=== PATIENT | male | born 1995 | race Caucasian/White ===

== ENCOUNTER 2020-02-25 16:10 | Emergency (ER) | payer OTHER, SELFPAY ==
[2020-02-25 16:19] VITALS: BP 108/68; PULSE 69; O2SAT 97
[2020-02-25 16:24] VITALS: BP 108/68; PULSE 69; RESP 18; TEMP 37.1; O2SAT 97; BMI 25.1
[2020-02-25 16:58] LABS: Add Manual Diff / Slide Review NO; Basophils Absolute Auto 0 /uL (0-100); Basophils Percent Auto 0.6 % (0-2); Eosinophils Absolute Auto 100 /uL (0-450); Hematocrit 43.8 % (41-53); Hemoglobin 14.8 g/dL (13.5-17.5); Lymphocytes Absolute Auto 1600 /uL (1100-4500); Lymphocytes Percent Auto 27.2 % (25-40); Mean Corpuscular HGB Conc 33.8 % (30-36); Mean Corpuscular Hemoglobin 30.5 PG (26-34); Monocytes Absolute Auto 400 /uL (0-900); Monocytes Percent Auto 7.6 % (3-14); Neutrophils Absolute Auto 3700 /uL (1500-7000); Neutrophils Percent Auto 62.6 % (50-75); Platelet Count 209 X10^3/uL (150-400); Red Blood Cell Count 4.87 X10^6/uL (4.5-5.9); Red Cell Distribution Width 12.6 % (11.6-14.8); White Blood Cell Count 5.9 X10^3/uL (4.5-11.0)
--- NOTE | 2020-02-25 17:04 | ED.PSYCH ---
HPI - Psych <ALDA Cui-BC - Last Filed: 02/25/20 20:12> General Chief Complaint: Psychiatric Symptoms Stated Complaint: severe depression Time Seen by Provider: 02/25/20 16:15 Source: patient and other Mode of arrival: Ambulatory Limitations: no limitations History of Present Illness HPI Narrative: The patient is a 24-year-old male current smoker with history of depression who presents with a chief complaint of severe depression. He is in the , and was recently discharged from a psychiatric stay at [facility] over the summer. He endorses hopelessness states he is not eating or drinking well. States he is not sleeping well. States that he has not had anything to eat or drink yet today. He endorses hopelessness, states that he feels as though nobody ?really knows him.He states he wakes up every morning wondering why he is alive. He does have suicidal ideations, and endorses a plan of hanging. He states that he lost his mother, recently lost his step grandfather who helped raise him. He states that so he is not in much contact with his family and that they do not care about him at this point time. He states he thinks he needs inpatient hospitalization. He states he is able to be safe during his emergency department stay. 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 He denies any drug use, states that he drinks a few times a week, but nothing to excess. He has not had a drink in several days. He states he is supposed to take medication for depression and sleep, but does not take it all the time. Related Data Allergies Allergy/AdvReac Type Severity Reaction Status Date / Time No Known Drug Allergies Allergy Verified 02/25/20 16:24 Review of Systems <ALDA Cui-BC - Last Filed: 02/25/20 20:12> Review of Systems Narrative: GENERAL: Denies chills, fatigue, malaise, fever, sweats. HEENT: Denies sinus pain, ear pain, sore throat, difficulty swallowing, dizziness. RESPIRATORY: Denies dyspnea, cough, wheezing, hemoptysis, sputum. CARDIOVASCULAR: Denies chest pain, palpitations, orthopnea, edema, GASTROINTESTINAL: Denies nausea, vomiting, abdominal pain, diarrhea, constipation, melena. : Denies dysuria, frequency, incontinence, hematuria, urinary retention. MUSCULOSKELETAL: denies weakness, joint pain, or bony pain SKIN: Denies rash, skin lesions, or other NEUROLOGIC: Denies weakness, headache, numbness, change in speech, confusion, seizures, incoordination. PSYCHIATRIC: See HPI 12 point review of systems is negative except for those stated above Patient History <SMOOTH Cui - Last Filed: 02/25/20 20:12> Social History Smoking Status: Current every day smoker Smoking Status: Current every day smoker alcohol intake frequency: a few times a week Substance Use Type: does not use Exam <SMOOTH Cui - Last Filed: 02/25/20 20:12> Narrative Exam Narrative: GENERAL: This is a well-nourished, well-developed patient, in appears anxious HEAD: Atraumatic. Normocephalic. No temporal or scalp tenderness. EYES: Pupils equal round and reactive. Extraocular motions intact. No scleral icterus. No injection or drainage. ENT: Nose without bleeding, purulent drainage or septal hematoma. Wearing a mask Airway patent. NECK: Trachea midline. No JVD or lymphadenopathy. Supple, nontender, no meningeal signs. CARDIOVASCULAR: Regular rate and rhythm without murmurs, gallops, or rubs. RESPIRATORY: Speaking full sentences. No cough. No increased respiratory effort. No accessory muscle use. EXTREMITIES: No clubbing, cyanosis, or edema. No joint tenderness, effusion, or edema noted. Using all extremities equally. BACK: Nontender without deformity or crepitance. No flank tenderness. NEURO: AOx3. Tangential at times. Flat affect. Staring at the floor during interview. SKIN: No rash or erythema on visible skin Initial Vital Signs Initial Vital Signs: Vital Signs Pulse Rate 69 02/25/20 16:19 Blood Pressure 108/68 02/25/20 16:19 Pulse Oximetry 97 02/25/20 16:19 <Maxwell Hilton DO - Last Filed: 02/25/20 22:01> Initial Vital Signs Initial Vital Signs: Vital Signs Pulse Rate 69 02/25/20 16:19 Blood Pressure 108/68 02/25/20 16:19 Pulse Oximetry 97 02/25/20 16:19 Scores <SMOOTH Cui - Last Filed: 02/25/20 20:12> GCS [place] coma scale eye opening: Spontaneous [place] coma scale verbal response: Orientated Lazaro coma scale motor response: Obey commands Lazaro coma scale total score: 15 Course <SMOOTH Cui - Last Filed: 02/25/20 20:12> Orders Ordered: ED Orders 02/25/20 16:36 Consult to [facility] Deliver Driver Urgent 02/25/20 16:50 Acetaminophen Stat Complete Blood Count AUTO DIFF Stat Comprehensive Metabolic Panel Stat Ethanol (ETOH) Stat Salicylate Stat Thyroid Stimulating Hormone Stat 02/25/20 18:25 Urine Drug Screen, Rapid Stat 02/25/20 18:40 COVID19 Stat Vital Signs Vital signs: Vital Signs - 8 hr 02/25/20 16:19 02/25/20 16:24 02/25/20 19:32 Temperature 98.8 F Pulse Rate 69 69 76 Respiratory Rate 18 18 Blood Pressure 108/68 108/68 117/61 Pulse Oximetry 97 97 97 <Maxwell Hilton DO - Last Filed: 02/25/20 22:01> Orders Ordered: ED Orders 02/25/20 16:36 Consult to [facility] Deliver Driver Urgent 02/25/20 16:50 Acetaminophen Stat Complete Blood Count AUTO DIFF Stat Comprehensive Metabolic Panel Stat Ethanol (ETOH) Stat Salicylate Stat Thyroid Stimulating Hormone Stat 02/25/20 18:25 Urine Drug Screen, Rapid Stat 02/25/20 18:40 COVID19 Stat Vital Signs Vital signs: Vital Signs - 8 hr 02/25/20 16:19 02/25/20 16:24 02/25/20 19:32 Temperature 98.8 F Pulse Rate 69 69 76 Respiratory Rate 18 18 Blood Pressure 108/68 108/68 117/61 Pulse Oximetry 97 97 97 MDM - Psych <SMOOTH Cui - Last Filed: 02/25/20 20:12> Lab Data Result diagrams: 02/25/20 16:50 02/25/20 16:50 Labs: Lab Results 02/25/20 02/25/20 02/25/20 Range/Units 16:50 16:50 16:50 WBC 5.9 (4.5-11.0) X10^3/uL RBC 4.87 (4.5-5.9) X10^6/uL Hgb 14.8 (13.5-17.5) g/dL Hct 43.8 (41-53) % MCV 90.0 (80-100) fL MCH 30.5 (26-34) PG MCHC 33.8 (30-36) % RDW 12.6 (11.6-14.8) % Plt Count 209 (150-400) X10^3/uL Neut % (Auto) 62.6 (50-75) % Lymph % (Auto) 27.2 (25-40) % [place] % (Auto) 7.6 (3-14) % Eos % (Auto) 2.0 (2-4) % Baso % (Auto) 0.6 (0-2) % Neut # (Auto) 3700 (9714-5149) /uL Lymph # (Auto) 1600 (5860-2017) /uL [place] # (Auto) 400 (0-900) /uL Eos # (Auto) 100 (0-450) /uL Baso # (Auto) 0 (0-100) /uL Sodium 142 (137-145) mmol/L Potassium 4.4 (3.4-5.1) mmol/L Chloride 103 (98-107) mmol/L Carbon Dioxide 32 (22-32) mmol/L BUN 13 (9-20) mg/dL Creatinine 0.91 (0.66-1.25) mg/dL Estimated GFR > 60.0 (>60) mL/min BUN/Creatinine Ratio 14.3 (6-22) Glucose 102 H (70-100) mg/dL Calcium 9.8 (8.4-10.2) mg/dL Total Bilirubin 0.9 (0.2-1.3) mg/dL AST 26 (17-59) IU/L ALT 22 (<50) IU/L Alkaline Phosphatase 59 (38-126) U/L Total Protein 8.2 (6.3-8.2) g/dL Albumin 5.0 (3.5-5.0) g/dL Globulin 3.2 (1.7-4.1) g/dL Albumin/Globulin Ratio 1.6 (1.0-2.8) TSH 1.38 (0.47-4.68) uIU/mL Salicylates < 1.0 (<20) mg/dL U Opiates 300ng/mL cut (Negative) Ur Oxycodone Screen (Negative) Urine Methadone Screen (Negative) Acetaminophen < 10 L (10-30) ug/mL Ur Barbiturates Screen (Negative) U Tricyclic Antidepress (Negative) Ur Phencyclidine Scrn (Negative) Ur Amphetamines Screen (Negative) U Methamphetamines Scrn (Negative) Ur MDMA Scrn (Ecstasy) (Negative) U Benzodiazepines Scrn (Negative) Urine Cocaine Screen (Negative) U Marijuana (THC) Screen (Negative) Ethyl Alcohol < 10 ( - 10) mg/dL COVID-19 PCR (Negative) 02/25/20 02/25/20 Range/Units 18:25 18:40 WBC (4.5-11.0) X10^3/uL RBC (4.5-5.9) X10^6/uL Hgb (13.5-17.5) g/dL Hct (41-53) % MCV (80-100) fL MCH (26-34) PG MCHC (30-36) % RDW (11.6-14.8) % Plt Count (150-400) X10^3/uL Neut % (Auto) (50-75) % Lymph % (Auto) (25-40) % [place] % (Auto) (3-14) % Eos % (Auto) (2-4) % Baso % (Auto) (0-2) % Neut # (Auto) (8980-8236) /uL Lymph # (Auto) (7996-9693) /uL [place] # (Auto) (0-900) /uL Eos # (Auto) (0-450) /uL Baso # (Auto) (0-100) /uL Sodium (137-145) mmol/L Potassium (3.4-5.1) mmol/L Chloride (98-107) mmol/L Carbon Dioxide (22-32) mmol/L BUN (9-20) mg/dL Creatinine (0.66-1.25) mg/dL Estimated GFR (>60) mL/min BUN/Creatinine Ratio (6-22) Glucose (70-100) mg/dL Calcium (8.4-10.2) mg/dL Total Bilirubin (0.2-1.3) mg/dL AST (17-59) IU/L ALT (<50) IU/L Alkaline Phosphatase (38-126) U/L Total Protein (6.3-8.2) g/dL Albumin (3.5-5.0) g/dL Globulin (1.7-4.1) g/dL Albumin/Globulin Ratio (1.0-2.8) TSH (0.47-4.68) uIU/mL Salicylates (<20) mg/dL U Opiates 300ng/mL cut Negative (Negative) Ur Oxycodone Screen Negative (Negative) Urine Methadone Screen Negative (Negative) Acetaminophen (10-30) ug/mL Ur Barbiturates Screen Negative (Negative) U Tricyclic Antidepress Negative (Negative) Ur Phencyclidine Scrn Negative (Negative) Ur Amphetamines Screen Negative (Negative) U Methamphetamines Scrn Negative (Negative) Ur MDMA Scrn (Ecstasy) Negative (Negative) U Benzodiazepines Scrn Negative (Negative) Urine Cocaine Screen Negative (Negative) U Marijuana (THC) Screen Negative (Negative) Ethyl Alcohol ( - 10) mg/dL COVID-19 PCR Negative (Negative) Urine Dip Bedside Urine Glucose Negative Bedside Urine Bilirubin - Negative Bedside Urine Ketone - Negative Urine Specific [place] 1.015 Bedside Urine Occult Blood - Negative Bedside Urine pH 7.0 Bedside Urine Protein - Negative Bedside Urine Urobilinogen - Negative Bedside Urine Nitrite - Negative Bedside Urine Leukocytes - Negative Esterase MDM Narrative Medical decision making narrative: The patient is a 24-year-old male who presents with a chief complaint of severe depression. Given his history, presentation and plan to suicide by hanging, I am concerned about him and believe he needs inpatient admission. At this point the patient is willing to seek care and is voluntary at this moment in time. Thus basic psychiatric admission labs were obtained. Coronavirus test is negative. Urine tox screen is negative. Patient was accepted at [facility]. Has been cooperative throughout his emergency department stay. Patient and superior from elect to have patient transported by BLS rather than to superiors. S transportation arranged. <Maxwell Hilton, DO - Last Filed: 02/25/20 22:01> Lab Data Labs: Lab Results 02/25/20 02/25/20 02/25/20 Range/Units 16:50 16:50 16:50 WBC 5.9 (4.5-11.0) X10^3/uL RBC 4.87 (4.5-5.9) X10^6/uL Hgb 14.8 (13.5-17.5) g/dL Hct 43.8 (41-53) % MCV 90.0 (80-100) fL MCH 30.5 (26-34) PG MCHC 33.8 (30-36) % RDW 12.6 (11.6-14.8) % Plt Count 209 (150-400) X10^3/uL Neut % (Auto) 62.6 (50-75) % Lymph % (Auto) 27.2 (25-40) % [place] % (Auto) 7.6 (3-14) % Eos % (Auto) 2.0 (2-4) % Baso % (Auto) 0.6 (0-2) % Neut # (Auto) 3700 (7892-0157) /uL Lymph # (Auto) 1600 (4441-3921) /uL [place] # (Auto) 400 (0-900) /uL Eos # (Auto) 100 (0-450) /uL Baso # (Auto) 0 (0-100) /uL Sodium 142 (137-145) mmol/L Potassium 4.4 (3.4-5.1) mmol/L Chloride 103 (98-107) mmol/L Carbon Dioxide 32 (22-32) mmol/L BUN 13 (9-20) mg/dL Creatinine 0.91 (0.66-1.25) mg/dL Estimated GFR > 60.0 (>60) mL/min BUN/Creatinine Ratio 14.3 (6-22) Glucose 102 H (70-100) mg/dL Calcium 9.8 (8.4-10.2) mg/dL Total Bilirubin 0.9 (0.2-1.3) mg/dL AST 26 (17-59) IU/L ALT 22 (<50) IU/L Alkaline Phosphatase 59 (38-126) U/L Total Protein 8.2 (6.3-8.2) g/dL Albumin 5.0 (3.5-5.0) g/dL Globulin 3.2 (1.7-4.1) g/dL Albumin/Globulin Ratio 1.6 (1.0-2.8) TSH 1.38 (0.47-4.68) uIU/mL Salicylates < 1.0 (<20) mg/dL U Opiates 300ng/mL cut (Negative) Ur Oxycodone Screen (Negative) Urine Methadone Screen (Negative) Acetaminophen < 10 L (10-30) ug/mL Ur Barbiturates Screen (Negative) U Tricyclic Antidepress (Negative) Ur Phencyclidine Scrn (Negative) Ur Amphetamines Screen (Negative) U Methamphetamines Scrn (Negative) Ur MDMA Scrn (Ecstasy) (Negative) U Benzodiazepines Scrn (Negative) Urine Cocaine Screen (Negative) U Marijuana (THC) Screen (Negative) Ethyl Alcohol < 10 ( - 10) mg/dL COVID-19 PCR (Negative) 02/25/20 02/25/20 Range/Units 18:25 18:40 WBC (4.5-11.0) X10^3/uL RBC (4.5-5.9) X10^6/uL Hgb (13.5-17.5) g/dL Hct (41-53) % MCV (80-100) fL MCH (26-34) PG MCHC (30-36) % RDW (11.6-14.8) % Plt Count (150-400) X10^3/uL Neut % (Auto) (50-75) % Lymph % (Auto) (25-40) % [place] % (Auto) (3-14) % Eos % (Auto) (2-4) % Baso % (Auto) (0-2) % Neut # (Auto) (2492-2750) /uL Lymph # (Auto) (3712-5754) /uL [place] # (Auto) (0-900) /uL Eos # (Auto) (0-450) /uL Baso # (Auto) (0-100) /uL Sodium (137-145) mmol/L Potassium (3.4-5.1) mmol/L Chloride (98-107) mmol/L Carbon Dioxide (22-32) mmol/L BUN (9-20) mg/dL Creatinine (0.66-1.25) mg/dL Estimated GFR (>60) mL/min BUN/Creatinine Ratio (6-22) Glucose (70-100) mg/dL Calcium (8.4-10.2) mg/dL Total Bilirubin (0.2-1.3) mg/dL AST (17-59) IU/L ALT (<50) IU/L Alkaline Phosphatase (38-126) U/L Total Protein (6.3-8.2) g/dL Albumin (3.5-5.0) g/dL Globulin (1.7-4.1) g/dL Albumin/Globulin Ratio (1.0-2.8) TSH (0.47-4.68) uIU/mL Salicylates (<20) mg/dL U Opiates 300ng/mL cut Negative (Negative) Ur Oxycodone Screen Negative (Negative) Urine Methadone Screen Negative (Negative) Acetaminophen (10-30) ug/mL Ur Barbiturates Screen Negative (Negative) U Tricyclic Antidepress Negative (Negative) Ur Phencyclidine Scrn Negative (Negative) Ur Amphetamines Screen Negative (Negative) U Methamphetamines Scrn Negative (Negative) Ur MDMA Scrn (Ecstasy) Negative (Negative) U Benzodiazepines Scrn Negative (Negative) Urine Cocaine Screen Negative (Negative) U Marijuana (THC) Screen Negative (Negative) Ethyl Alcohol ( - 10) mg/dL COVID-19 PCR Negative (Negative) Urine Dip Bedside Urine Glucose Negative Bedside Urine Bilirubin - Negative Bedside Urine Ketone - Negative Urine Specific [place] 1.015 Bedside Urine Occult Blood - Negative Bedside Urine pH 7.0 Bedside Urine Protein - Negative Bedside Urine Urobilinogen - Negative Bedside Urine Nitrite - Negative Bedside Urine Leukocytes - Negative Esterase <Maxwell Hilton DO - Last Filed: 02/25/20 22:01> Cosign ED Attending Cosignature Attestation: I was immediately available in the department for consultation. This documentation has been reviewed and I agree with assessment and plan. Supervised by Maxwell Hilton DO
[2020-02-25 17:16] LABS: Acetaminophen < 10 ug/mL (10-30); Alanine Aminotransferase 22 IU/L (<50); Albumin Globulin Ratio 1.6 (1.0-2.8); Alkaline Phosphatase 59 U/L (38-126); Aspartate Aminotransferase 26 IU/L (17-59); BUN Creatinine Ratio 14.3 (6-22); Bilirubin Total 0.9 mg/dL (0.2-1.3); Blood Urea Nitrogen 13 mg/dL (9-20); Calcium 9.8 mg/dL (8.4-10.2); Carbon Dioxide 32 mmol/L (22-32); Chloride 103 mmol/L (98-107); Estimated Glomerular Filt Rate > 60.0 mL/min (>60); Ethanol (ETOH) < 10 mg/dL; Globulin 3.2 g/dL (1.7-4.1); Glucose 102 mg/dL (70-100); HEMOLYSIS < 15 (0-50); Potassium 4.4 mmol/L (3.4-5.1); Salicylate < 1.0 mg/dL (<20); Sodium 142 mmol/L (137-145); Total Protein 8.2 g/dL (6.3-8.2)
[2020-02-25 17:46] LABS: Thyroid Stimulating Hormone 1.38 uIU/mL (0.47-4.68)
--- NOTE | 2020-02-25 17:54 | PC.NURSE ---
JASSI Burch is in talking with patient.
--- NOTE | 2020-02-25 17:55 | PC.NURSE ---
JASSI Burch is in talking with patient.
--- NOTE | 2020-02-25 17:56 | PC.NURSE ---
JASSI Burch is in talking with patient.
--- NOTE | 2020-02-25 18:33 | PC.NURSE ---
Patient used bathroom. Lying down with lights off and door open.
[2020-02-25 18:42] LABS: UR Morphine/Opiate cutoff 300 Negative (Negative); Ur Creatinine Normal (Normal); Ur Specific Gravity Normal (Normal); Urine Amphetamines Negative (Negative); Urine Barbiturates Negative (Negative); Urine Benzodiazepines Negative (Negative); Urine Cocaine Negative (Negative); Urine MDMA Negative (Negative); Urine Methadone Negative (Negative); Urine Methamphetamines Negative (Negative); Urine Oxycodone Negative (Negative); Urine Phencyclidine Negative (Negative); Urine Tetrahydrocannabinol Negative (Negative); Urine Tricyclic Antidepressant Negative (Negative); Urine pH Normal (Normal)
--- NOTE | 2020-02-25 18:44 | CM.SWNOTE ---
TECHNICAL PUBLICATIONS MANAGER note Following assessment, TECHNICAL PUBLICATIONS MANAGER contacts [facility] at [phone] seeking inpatient behavioral health bed for patient. TECHNICAL PUBLICATIONS MANAGER speaks with Mahnaz, who informs TECHNICAL PUBLICATIONS MANAGER that there are open beds, but that all labs must be returned and faxed to [facility] prior to patient being considered for beds. Not all labs have returned from lab at time of call. TECHNICAL PUBLICATIONS MANAGER notifies ED Provider ANA Cui who indicates understanding. Mahnaz informs TECHNICAL PUBLICATIONS MANAGER that labs are to be faxed to [phone]. TECHNICAL PUBLICATIONS MANAGER asks Mahnaz about command driving patients to [facility]. Mahnaz informs TECHNICAL PUBLICATIONS MANAGER that, due to COVID, it is the preference of [facility] that patients be sent via ambulance to [facility]. Pl: TECHNICAL PUBLICATIONS MANAGER will fax clinicals to [facility] once labs for patient are returned. JASSI Vallecillo
--- NOTE | 2020-02-25 18:49 | CM.SWNOTE ---
CERTIFIED PROSTHETIST/ORTHOTIST Assessment CERTIFIED PROSTHETIST/ORTHOTIST - Bait Man Assessment CERTIFIED PROSTHETIST/ORTHOTIST - Bait Man Assessment Start: 02/25/20 18:11 Freq: Status: Active Protocol: Document 02/25/20 18:11 HENRY (Rec: 02/25/20 18:49 HENRY [id number]) CERTIFIED PROSTHETIST/ORTHOTIST/Bait Man Assessment Time Spent with Patient Start date 02/25/20 Visit Start Time 17:00 End date 02/25/20 Visit End Time 18:05 Total time Care Management spent on 65 patient visit-in minutes Mental Health Screening Include Onset, Duration, Intensity Presenting Problem Patient presents to ED for SI with plan for suicide by hanging. Patient is in [place], and was brought to ED by command. Patient endorses feeling low motivation, not eating well, poor sleep, increased social isolation, dark thoughts, and worthlessness. Precipitating Event(s) Patient attended inpatient mental health treatment at [facility] in December,. Patient reports he was frustrated when he attended an IOPS meeting this morning and exploded when he got on the call. He states a person from the group called his psychiatrist out of concern for safety of patient. Patient states psychiatrist and shelter case manager convinced him to go to ED for further evaluation for treatment. Patient Strengths Patient discusses valuing people being genuine as something that is very important to him. Current Behavioral Health Provider(s) Patient sees a psychiatrist Include Facility, Provider, Ph. # and a shelter case manager through the [place]. Psych. Hx Mental Health and Chemical Patient reports feeling Dependency depressed for roughly 3 years , and reports previous suicide attempts and considerations including attempted suicide by dehydration and considering jumping off the side of an aircraft carrier. Patient reports no current substance or ETOH concerns. Family Hx of Behavioral Abuse Patient reports he did not have a normal childhood, but did not disclose further information. Psychiatric Hospitalizations (date(s)/ Patient has been to [facility], location) December 2019. 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 Patient reports the of his mother in recent years and increasing social isolation as his depression worsens. Patient reports he has one friend who he feels a strong connection with, but states that this friend lives far away. School/Work Patient is currently in the [place]. Legal Concerns Legal Matters - Outstanding Issues None reported. Mental Status Orientation (Person/Place/Time) Oriented x3 Stated Mood I'm having dark thoughts Affect (Congruent with Mood?) dysphoric, flat, stable, congruent Thought Content - Specify/Describe Patient discusses some Obsessions, Delusions, Hallucinations paranoia surrounding electronic devices being able to track and eventually control humans. No other hallucinations or obsessions observed or reported. Thought Processes (Nxvkblm-Xewmpkqp-Ivyx Detailed, Circumstantial Ufhuohtl-Rhjyipgt-Mzlzffkoif- Nbayjuinxhxuxh-Oxskitk-Lszwopjjketf- Thought Blocking) Speech (Qxuwbf-Brqg-Sxsylnj-Rapid-Soft- Normal Loud-Pressured) Motor (Ydlrcd-Ysjykmtys-Tsln-Other) Normal Insight (Mnjx-Bxoh-Snyu/Limited) Fair Judgement (Zbyo-Esiv-Zuzw/Limited) Fair to poor/limited Impulse Control (Adequate-Impaired) Adequate in interview Memory (Pobxgpula-Jpvjgu-Hgnayz, Intact in interview, not Impaired-Intact) formally assessed Concentration (Intact-Impaired) Intact Attention (Intact-Impaired) Intact Behavior (Appropriate-Inappropriate) Appropriate Risk Assessment Suicidal Ideation (Plan) Yes Homicidal Ideation (Plan) No Comment Patient denies HI, endorses SI with hopelessness and plan. Patient states he plans to kill himself using rope and refers to wanting to walk up the guillotine multiple times during assessment. Intervention Intervention CERTIFIED PROSTHETIST/ORTHOTIST meets with patient. Patient discusses severe depression and that he does not feel safe with myself. Due to significance of SI with plan, hopelessness, and previous attempts, it is the recommendation of this CERTIFIED PROSTHETIST/ORTHOTIST that patient receive inpatient behavioral health stabilization. CERTIFIED PROSTHETIST/ORTHOTIST discusses this with patient who verbalizes agreement. CERTIFIED PROSTHETIST/ORTHOTIST updates provider ANA Cui, who indicates agreement with plan to find inpatient placement for patient. Plan RA Plan CERTIFIED PROSTHETIST/ORTHOTIST to contact [facility] and seek inpatient bed for patient . JASSI Vallecillo
[2020-02-25 18:58] LABS: COVID19 -Nasal RAPID Negative (Negative)
--- NOTE | 2020-02-25 19:00 | PC.NURSE ---
Patient is lying down with lights off.
[2020-02-25 19:32] VITALS: BP 117/61; PULSE 76; RESP 18; O2SAT 97
--- NOTE | 2020-02-25 20:05 | CM.SWNOTE ---
SIEBEL ADMINISTRATOR note [facility] staff calls SIEBEL ADMINISTRATOR with Dr. Echols from [facility] on the phone. SIEBEL ADMINISTRATOR reviews patient situation and reason for seeking admission with Dr. Echols. Dr. Echols accepts patient. Details of acceptance listed below. Accepted to [facility]. Accepting provider Dr. Echols. Nurse-to Nurse: [phone]. Intake contact Mahnaz. Call nurse to nurse with ETA once patient departs hospital. SIEBEL ADMINISTRATOR enters room and patient's command is in room. Patient provides permission for SIEBEL ADMINISTRATOR to give update with patient in room. SIEBEL ADMINISTRATOR informs patient of acceptance, and informs patient that, per Dr. Echols, he may choose to go down with his command or via ambulance. Patient asks if he can think about it. SIEBEL ADMINISTRATOR enters room with provider Helena PEREZ and patient states he would like to go down via ambulance. ED provider informs SIEBEL ADMINISTRATOR that she will update KINDRA Jean-Pierre with plan for ambulance transfer to arrange transport. Plan: Patient to transfer to [facility] via BLS transport to receive inpatient behavioral health stabilization. JASSI Vallecillo
== END 2020-02-25 21:40 ==
PROVIDERS: Nurse Practitioner Family; Emergency Provider Emergency Medicine
DX: F32.9 Major depressive disorder, single episode, unspecified (principal); Z11.59 Encounter for screening for other viral diseases
CPT/HCPCS: 36415; 80053; 80305; 80320; 80329; 81003; 84443; 85025; 87635; 99284; G0480

== ENCOUNTER → 2020-08-23 15:51 | Outpatient (CLI) | payer OTHER, SELFPAY ==
--- NOTE | 2020-08-23 15:54 | DI.ECHO.S_ITS ---
[facility] +---------+ : : [address] : [address] : : : : [id number] : : : : Phone: [phone]---------+ Echocardiogram Report + + :Name: AMBER FOFANA Study Date: 08/23/2020 Height: 71 in : :[facility] ReadingLocation: Weight: 195 lb : : Gender: Male BSA: 2.1 m2 : :: 1995 Age: 25 yrs BP: 145/87 mmHg: :Reason For Study: SYNCOPE : :Ordering Physician: BRYSON, : :JIMBO Performed By: Dalia Willis : :Referring: JIMBO MASSEY : + + Interpretation Summary The left ventricle is normal in size and wall thickness. The ejection fraction is estimated to be 60-65%. The right ventricle is normal in size and function. No significant valvular pathology seen. There is a small protruded echogenic shadow in the aortic arch. It is not well visualized. It is not mobile. Does not appears to be an artifact. Patient is 25 years old and at this age, unusual to have atherosclerotic plaque. Correlate clinically and consider CIRO for further evaluation. Procedure: A two-dimensional transthoracic echocardiogram with color flow and Doppler was performed. The study quality was technically adequate. There is no prior echocardiogram noted for this patient. The patient was in sinus rhythm with heart rates between 81-98 bpm during the exam. Left Ventricle: The left ventricle is normal in size and wall thickness. There is no thrombus. A false chord is noted (normal variant). The ejection fraction is estimated to be 60-65%. There are no focal wall motion abnormalities. Diastolic parameters suggest probable normal left ventricular diastolic function and normal filling pressures. Right Ventricle: The right ventricle is normal in size and function. The right ventricular systolic function is normal. Atria: The left atrial size is normal. Right atrial size is normal. There is no Doppler evidence for an interatrial shunt. Mitral Valve: The mitral valve is normal in structure and function. There is trace mitral regurgitation. Aortic Valve: The aortic valve is trileaflet. The aortic valve opens well. There is no aortic valve stenosis. No aortic regurgitation is present. Tricuspid Valve: The tricuspid valve is normal in structure and function. There is trace tricuspid regurgitation. Pulmonary artery pressures cannot be estimated because of the lack of a measurable TR jet velocity but the IVC suggests a CVP of around 3 mmHg. Pulmonic Valve: The pulmonic valve leaflets are thin and pliable; valve motion is normal. There is no pulmonic valvular regurgitation. Great Vessels: The aortic root is normal size. The ascending aorta could not be visualized. There is a small protruded echogenic shadow in the aortic arch. It was not well visualized. It is not mobile. Does not appears to be an artifact. Patient is 25 years old and at this age, unusual to have atherosclerotic plaque. Correlate clinically and consider CIRO for further evaluation. The IVC is of normal diameter and collapses greater than 50% with a sniff. This suggests a low right atrial pressure of 3 mm Hg. Pericardium/ Pleura There is no pericardial effusion. There is no pleural effusion. MMode/2D Measurements & Calculations LVIDd: 5.1 cm LVOT diam: 2.1 cm LVIDs: 3.5 cm Ao root diam: 3.1 cm FS: 31.4 % Ao Arch Diam (Prox Trans): 3.1 cm EPSS: 0.67 cm IVSd: 0.56 cm LVPWd: 0.72 cm LV dwyer. diameter/BSA (cm/m^2): 2.5 LV sys. diameter/BSA (cm/m^2): 1.7 LA A2 area: 21.3 cm2 RA long axis: 4.4 cm LA A4 area: 15.7 cm2 RA area: 12.2 cm2 LA length (vol): 4.3 cm RA vol: 28.9 ml LA vol: 66.4 ml RA : 13.9 ml/m2 LA vol index: 31.8 ml/m2 IVC diam: 1.4 cm RVD1 (basal): 3.7 cm TAPSE: 2.5 cm Doppler Measurements & Calculations Ao V2 max: 133.7 cm/sec LVOT Max Nilson: 93.9 cm/sec Ao V2 mean: 96.8 cm/sec LV V1 max P.5 mmHg Ao max P.2 mmHg LV V1 VTI: 15.1 cm Ao mean P.1 mmHg DAVE(I,D): 2.3 cm2 Ao V2 VTI: 23.2 cm DAVE(V,D): 2.5 cm2 sev ratio: 0.65 DAVE indexed to BSA (cm^2/m^2): 1.1 MV E max nilson: 78.7 cm/sec PA V2 max: 125.4 cm/sec MV A max nilson: 66.1 cm/sec PA V2 mean: 85.4 cm/sec MV E/A: 1.2 PA mean P.4 mmHg Med Peak E' Nilson: 13.0 cm/sec PA pr(Accel): 31.0 mmHg E/E' med: 6.0 Lat Peak E' Nilson: 13.5 cm/sec E/E' lat: 5.8 E/e' average: 5.9 MV dec time: 0.18 sec SV(LVOT): 53.3 ml Reading Physician:05:22 PM
== END ==
PROVIDERS: PCP Orthopaedic Surgery; Referring Provider Orthopaedic Surgery; Visit Provider Orthopaedic Surgery
DX: Z00.00 Encounter for general adult medical examination without abnormal findings (principal); R55 Syncope and collapse
CPT/HCPCS: 93306